=== PATIENT | female | born 1995 | race Caucasian/White ===

== ENCOUNTER 2017-03-31 14:26 | Emergency (ER) | payer BC ==
[~2017-03-31] VITALS: Ht 180.3 cm; Wt 64.9 kg
[2017-03-31 14:35] VITALS: BP 114/76
--- NOTE | 2017-03-31 17:48 | NUR ---
Patient ambulated to bed 03.
--- NOTE | 2017-03-31 17:51 | NUR ---
Dr. Card evaluating patient at bedside.
[2017-03-31] MEDS ORDERED: NACL 0.9% 1,000 ML IV SCH (17:52)
[2017-03-31] MEDS ORDERED: NACL 0.9% 1,000 ML IV ONE (17:55)
[2017-03-31] MEDS ORDERED: KETOROLAC 30 MG/ML VIAL IVP ONE (18:00)
[2017-03-31] MEDS ORDERED: cefTRIAXone 1,000 MG VIAL ONE (18:23)
--- NOTE | 2017-03-31 18:43 | NUR ---
21/F TO ED WITH C/O UTI SYMPTOMS X1 WEEK. PAIN, BURNING, AND LOWER BACK TENDERNESS. PAIN 04/28. PT WAS SENT FROM [facility]. LUNGS CLEAR BILAT. HR EVEN AND REGULAR. AAOX4. VSS. NO SIGNS OF DISTRESS.
--- NOTE | 2017-03-31 19:10 | NUR ---
REPORT RECEIVED FROM ASHLY BIRMINGHAM
--- NOTE | 2017-03-31 19:11 | NUR ---
Pt report given to GARRETT. Transfer of care at this time.
--- NOTE | 2017-03-31 19:15 | NUR ---
PT TO CT VIA WC IN STABLE CONDITION
--- NOTE | 2017-03-31 19:15 | NUR ---
LATE ENTRY: NS BOLUS COMPLETE 1 LITER @ 1915. PT TOLERATED WELL.
--- NOTE | 2017-03-31 19:35 | NUR ---
PT RETURNED FROM CT IN STABLE CONDITION
[2017-03-31 20:30] VITALS: BP 119/71
--- NOTE | 2017-03-31 20:31 | NUR ---
Patient discharged with v/s stable. Written and verbal after care instructions given and explained. Patient alert, oriented and verbalized understanding of instructions. Ambulatory with steady gait. All questions addressed prior to discharge. ID band removed. Patient advised to follow up with PMD. Rx of IBUPROFEN, FLOMAX, NORCO, CIPRO given. Patient educated on indication of medication including possible reaction and side effects. Opportunity to ask questions provided and answered.
== END 2017-03-31 20:31 | disposition home or self-care (01) ==
LOC: MED 14:26
DX: N23 Unspecified renal colic (principal); N12 Tubulo-interstitial nephritis, not specified as acute or chronic; F12.90 Cannabis use, unspecified, uncomplicated
CPT/HCPCS: 36415; 74176; 80053; 81001; 81025; 83605; 85025; 87040; 87086; 87186; 96365; 96375; 99285; J0696; J1885; J7030; J7060